=== PATIENT | male | born 1955 | race Caucasian/White ===

== ENCOUNTER 2024-03-23 20:22 | Emergency (ER) | payer BC, SELFPAY ==
[2024-03-23 20:30] VITALS: BP 136/77; PULSE 64; RESP 18; TEMP 36.3; O2SAT 100; BMI 21.3
--- NOTE | 2024-03-23 20:51 | ED.GENADULT ---
HPI - General Adult General Date Seen: 03/23/24 Chief complaint: Skin/Abscess/Foreign Body Stated complaint: tick burrowed in shoulder Time Seen by Provider: 03/23/24 20:42 Source: patient Mode of arrival: ambulatory Limitations: no limitations History of Present Illness HPI narrative: Patient is a 68-year-old male who says he noticed a tick on his right upper chest tonight when he took off his shirt to shave. He does not believe it was there yesterday. He says it was not engorged, he does believe it was a deer tick. No other complaints. He tried to remove it but believes he left the head behind. Related Data Previous Rx's Medication Instructions Recorded doxycycline hyclate 100 mg capsule 200 mg (2 x 100 mg) PO ONCE #2 caps 03/23/24 Allergies Allergy/AdvReac Type Severity Reaction Status Date / Time No Known Drug Allergies Allergy Verified 03/23/24 20:33 Exam Narrative: Exam Narrative: Vital signs reviewed In general, alert, well-appearing male. Skin: On the right upper chest there is an area of redness where he has clearly been trying to remove tick parts. I actually do not see the head, there is a tiny black spot that may represent 1 of the mouth parts. Const: Vital Signs, click to edit/add: Vital Signs - 24 hr 03/23/24 20:30 Temperature 97.4 F L Pulse Rate [Right Pulse Oximeter] 64 Respiratory Rate 18 Blood Pressure [Ri ght Upper Arm] 136/77 Pulse Oximetry 100 Oxygen Delivery Me thod Room Air Documenting provider has reviewed patient's vital signs: yes Course Course ED Course: I used a splinter forceps to remove the 1 black luis that I saw. Discussed with him I do not think the head still remains. We discussed prophylaxis, he believes that the tick has probably been attached less than 48 hours, but I think a single dose of doxycycline is not unreasonable. This is prescribed. Discussed things to watch for in terms of infection and erythema migrans. Return as needed. Vital Signs Vital signs: Initial Vital Signs Temperature 97.4 F L 03/23/24 20:30 Temperature Source Temporal Artery Scan 03/23/24 20:30 Pulse Rate 64 03/23/24 20:30 Pulse Rhythm Regular 03/23/24 20:30 Respiratory Rate 18 03/23/24 20:30 Blood Pressure 136/77 03/23/24 20:30 Blood Pressure Mean 96 03/23/24 20:30 Blood Pressure Position Sitting 03/23/24 20:30 Pulse Oximetry 100 03/23/24 20:30 Oxygen Delivery Method Room Air 03/23/24 20:30 Vital Signs Temperature 97.4 F L 03/23/24 20:30 Pulse Rate 64 03/23/24 20:30 Respiratory Rate 18 03/23/24 20:30 Blood Pressure 136/77 03/23/24 20:30 Pulse Oximetry 100 03/23/24 20:30 Oxygen Delivery Method Room Air 03/23/24 20:30 Temperature 97.4 F L 03/23/24 20:30 Pulse Rate 64 03/23/24 20:30 Respiratory Rate 18 03/23/24 20:30 Blood Pressure 136/77 03/23/24 20:30 Pulse Oximetry 100 03/23/24 20:30 Oxygen Delivery Method Room Air 03/23/24 20:30 Discharge Plan Discharge Clinical Impression: Tick bite Patient Disposition: Home, Self-Care Condition: Stable Instructions: Tick Bite (ED) Additional Instructions: Routine wound care, return for significant pain or redness, or a slowly enlarging red round rash around the bite. Single dose doxycycline prophylactic as discussed. Prescriptions: New doxycycline hyclate 100 mg capsule 200 mg PO ONCE Qty: 2 0RF Stand Alone Forms: MyHealth Info Instructions
== END 2024-03-23 21:03 | disposition home or self-care (01) ==
LOC: ED 20:56
PROVIDERS: Emergency Provider Emergency Medicine; PCP Family Medicine
DX: S40.261A Insect bite (nonvenomous) of right shoulder, initial encounter (principal)
CPT/HCPCS: 99283